=== PATIENT | male | born 1980 | race Caucasian/White ===

== ENCOUNTER 2017-08-18 00:34 | Emergency (ER) | payer MEDICARE, OTHER ==
[~2017-08-18] VITALS: Ht 182.8 cm; Wt 108.9 kg
[~2017-08-18 00:34] MED LIST: 'PARAFON FORTE500 M1 PO; AMOXICILLIN500 MG PO; ASPI-COR81 M1 PO; ATIVAN2 M1 PO; AUGMENTIN 500 M1 TAB PO; AUGMENTIN 875 M1 TAB PO; BRIN10TA PO; CIPRODEX 0.3%-7.5 ML OT; CLARITIN10 MG PO; DEPAKOTE500 MG PO; HYDR25T PO; HYDROCODONE BIT1 T11 PO; IBU800 MG PO; LISINOPRIL HCTZ1 TA1 PO; LISINOPRIL10 MG PO; LISINOPRIL40 MG PO; LORAZEPAM2 MG PO; MOTRIN400 MG PO; NAPROSYN500 MG PO; PRILOSEC10 M1 PO; SUDAFED30 MG PO; TRIMOX500 MG PO; TYLENOL500 MG PO; VALIUM10 MG PO; VICODIN 5-3001 EACH PO; VISTARIL50 MG PO; XANAX1 MG PO
[2017-08-18 00:42] VITALS: BP 152/99
[2017-08-18] MEDS ORDERED: ULTRAM50 MG PO (00:50)
[2017-08-18] MEDS ORDERED: ZANAFLEX2 M2 PO (00:50)
[2017-08-18] MEDS ORDERED: XANAX1 MG PO (01:04)
== END 2017-08-18 01:26 | disposition home or self-care (01) ==
LOC: ED 00:34
DX: F41.9 Anxiety disorder, unspecified (principal); F17.200 Nicotine dependence, unspecified, uncomplicated; Z79.899 Other long term (current) drug therapy

== ENCOUNTER 2017-09-03 23:00 | Emergency (ER) | payer MEDICARE, OTHER ==
[~2017-09-03] VITALS: Ht 187.9 cm; Wt 113.4 kg
[2017-09-03 23:00] VITALS: BP 157/81
[~2017-09-03 23:00] MED LIST changes: +ULTRAM50 MG PO; +ZANAFLEX2 M2 PO
[2017-09-03 23:17] LABS: HEMATOCRIT 46.7 % (42.0-52.0); HEMOGLOBIN 14.4 g/dl (14.0-18.0); MEAN CELL VOLUME 110.4 fl (80.0-94.0); MEAN CORPUSCULAR HGB CONC 30.8 g/dl (33.0-37.0); MEAN PLATELET VOLUME 11.1 fl (9.6-12.3); NUCLEATED RED BLOOD CELL 0.1 10*3/uL (0.0-0.0); NUCLEATED RED BLOOD CELL 1.3 % (0.0-0.0); PLATELET COUNT AUTOMATED 148 10*3/uL (130-400); RED BLOOD COUNT 4.23 10*6/uL (4.50-5.90); RED CELL DISTRI WIDTH 12.4 % (0-14.5); WHITE BLOOD COUNT 10.1 10*3/uL (4.8-10.8)
[2017-09-03 23:30] LABS: BACTERIA 3+; BILIRUBIN NEGATIVE (NEGATIVE); BLOOD TRACE-INTACT (NEGATIVE); CLARITY CLOUDY (CLEAR); COLOR YELLOW (YELLOW); GLUCOSE NEGATIVE (NEGATIVE); KETONE NEGATIVE (NEGATIVE); LEUKO ESTERASE 3+ (NEGATIVE); NITRITE NEGATIVE (NEGATIVE); URINE AMPHETAMINES < 1000 (1000ng/ml); URINE BARBITURATES < 200 (200ng/ml); URINE BENZODIAZEPINES < 200 (200ng/ml); URINE CANNABINOIDS (THC) < 50 (50ng/ml); URINE COCAINE < 300 (300ng/ml); URINE METHADONE < 300 (300ng/ml); URINE OPIATES < 300 (300ng/ml); UROBILINOGEN 0.2 E.U./dl (0.2-1.0); WBC 21-30 wbc/hpf (0-5)
[2017-09-03 23:32] LABS: URINE PHENCYCLIDINE < 25 (25ng/ml)
[2017-09-03 23:34] LABS: ALBUMIN 2.7 gm/dl (3.1-4.5); ALKALINE PHOSPHATASE 116 U/L (45-117); BUN 10 mg/dl (7-24); CHLORIDE 103 mmol/L (98-107); CREATININE 1.94 mg/dL (0.70-1.30); POTASSIUM 4.8 mmol/L (3.5-5.1); SGOT/AST 104 IU/L (3-35); SGPT/ALT 121 U/L (12-78); SODIUM 150 mmol/L (136-145); TOTAL PROTEIN 5.9 gm/dL (6.4-8.2)
[2017-09-03 23:37] LABS: ACETAMINOPHEN (TYLENOL) < 2.0 ug/ml (10-30); TOTAL CELLS COUNTED 100 #CELLS; TROPONIN I < 0.015 ng/ml (<0.045)
[2017-09-03 23:38] LABS: POLYCHROMASIA SLIGHT
[2017-09-04 07:50] LABS: PLATELET SUFFICIENCY NORMAL (NORMAL)
== END 2017-09-03 23:07 | disposition expired ==
LOC: ED 23:00
PROVIDERS: Emergency Medicine Emergency Medical Services
DX: I46.9 Cardiac arrest, cause unspecified (principal); I10 Essential (primary) hypertension; Z79.899 Other long term (current) drug therapy; Z87.891 Personal history of nicotine dependence